=== PATIENT | female | born 1965 | race Caucasian/White ===

== ENCOUNTER 2016-12-21 20:35 | Emergency (ER) | payer OTHER ==
[2016-12-21 20:48] VITALS: BMI 24.5
[2016-12-21 20:56] VITALS: BP 130/92; PULSE 83; RESP 18; TEMP 98.6; O2SAT 96
[2016-12-21] MEDS ORDERED: Clobetasol 0.05% Cream(30 gm) TOP STA ×2 (21:17→22:12)
--- NOTE | 2016-12-21 21:20 | ED PDOC ---
Arrival/HPI - General Chief Complaint: Abnormal Skin Integrity Time Seen by Provider: 12/21/16 20:46 - History of Present Illness Narrative History of Present Illness (Text): 12/21/16 21:17 CC: itchiness and rash This patient is a 51yo F w/ no pmhx who is presenting to the ED after a 2d history of itchiness and rash after she was cleaning out poison stefani from her house. She states the same basilio gave her poison stefani last year and she simply forgot about it. She is not complaining of any other symptoms; denies fever/ chills, LITTLEJOHN, CP, SOB, abdominal pain, N/V/D, dysuria/freq/urg, or lower extremity pain/swelling. 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, denies EtOH, smoking, illicit drugs Past Medical History - Provider Review Nursing Documentation Reviewed: Yes - Travel History Have you recently traveled outside [place] w/in the past 3 mons?: No - Past History Past History: No Previous - Infectious Disease Hx of Infectious Diseases: None - Psychiatric Hx Substance Use: No - Anesthesia Hx Anesthesia: No - Suicidal Assessment Feels Threatened In Home Enviroment: No Family/Social History - Physician Review Nursing Documentation Reviewed: Yes Family/Social History: No Known Family HX Smoking Status: Never Smoked Hx Alcohol Use: No Hx Substance Use: No Allergies/Home Meds Allergies/Adverse Reactions: Allergies No Known Allergies Allergy (Verified 12/21/16 20:48) Home Medications: Home Meds Medication Instructions Recorded Confirmed Calamine/Zinc Oxide [Calamine 1 appful TD BID 12/21/16 12/21/16 Lotion] Cetirizine HCl [Allergy Relief] 10 mg PO DAILY 12/21/16 12/21/16 Review of Systems - Physician Review All systems were reviewed & negative as marked: Yes - Review of Systems Constitutional: absent: Fatigue, Weight Change Eyes: absent: Vision Changes, Photophobia ENT: absent: Hearing Changes, Tinnitus Respiratory: absent: SOB, Cough Cardiovascular: absent: Chest Pain, Palpitations Gastrointestinal: absent: Abdominal Pain Genitourinary Female: absent: Dysuria Musculoskeletal: absent: Arthralgias, Back Pain Skin: Rash, Pruritis, Skin Lesions. absent: Laceration, Abscess, Ulcer, Cellulitis Neurological: absent: Headache, Dizziness Endocrine: absent: Diaphoresis, Polyuria Hemo/Lymphatic: absent: Adenopathy Psychiatric: absent: Anxiety, Depression Physical Exam Vital Signs Temp Pulse Resp BP Pulse Ox 12/21/16 20:55 98.6 F 83 18 130/92 H 96 Temperature: Afebrile Blood Pressure: Normal Pulse: Regular Respiratory Rate: Normal Appearance: Positive for: Well-Appearing, Non-Toxic, Comfortable Pain Distress: None Mental Status: Positive for: Alert and Oriented X 3 - Systems Exam Head: Present: Atraumatic, Normocephalic Pupils: Present: PERRL Extroacular Muscles: Present: EOMI Conjunctiva: Present: Normal Mouth: Present: Moist Mucous Membranes Neck: Present: Normal Range of Motion Respiratory/Chest: Present: Clear to Auscultation, Good Air Exchange. No: Respiratory Distress Cardiovascular: Present: Regular Rate and Rhythm, Normal S1, S2. No: Murmurs Abdomen: No: Tenderness, Distention Back: Present: Normal Inspection. No: CVA Tenderness Upper Extremity: No: Normal Inspection (There are weeping open vesicles consistent with poison stefani dermatitis on the patients upper extemities that do not look infected ), Cyanosis, Edema Lower Extremity: No: Normal Inspection (small weeping vesicles on the patients left foot consistent with poison stefani dermatitis ), Edema Neurological: Present: GCS=15, CN II-XII Intact Skin: Present: Warm Psychiatric: Present: Alert, Oriented x 3, Normal Insight, Normal Concentration Medical Decision Making ED Course and Treatment: 12/21/16 21:21 Rash consistent with contact dermatitis 2/2 to Poison Stefani Will get Clobetasol Cream .05 topical Reassess and disposition 12/21/16 21:23 This patient is stable for discharge as per Dr. Mahoney The patient will be d/c will Clobetasol cream 0.05% which she can apply twice per day for itchiness advised to follow up with PMD if the itchiness gets worse and that it should get better with time educate to avoid itchiness advised to take oatmeal baths as well, and to keep any open wounds clean and dry patient agrees with treatment plan - Medication Orders Current Medication Orders: Discontinued Medications Clobetasol Propionate (Temovate 0.05%) 1 gm TOP ONCE STA Stop: 12/21/16 21:18 Last Admin: 12/21/16 21:30 Dose: 1 gm Disposition/Present on Arrival - Present on Arrival Any Indicators Present on Arrival: No History of DVT/PE: No History of Uncontrolled Diabetes: No Urinary Catheter: No History of Decub. Ulcer: No History Surgical Site Infection Following: None - Disposition Have Diagnosis and Disposition been Completed?: Yes Diagnosis: Poison stefani dermatitis Disposition: HOME/ ROUTINE Disposition Time: 21:23 Patient Plan: Discharge Condition: FAIR Discharge Instructions (ExitCare): Poison Stefani (ED) Prescriptions: Clobetasol 0.05% [Temovate 0.05% OINTMENT] 30 applic TOP BID #1 tube
[2016-12-21] MEDS ORDERED: Clobetasol 0.05% Oint(15 gm) TOP STA (21:46)
== END 2016-12-21 22:21 | disposition home or self-care (01) ==
LOC: ED 20:35
DX: L23.7 Allergic contact dermatitis due to plants, except food (principal)